=== PATIENT | male | born 1945 | race Caucasian/White ===

== ENCOUNTER → 2016-06-22 | Outpatient (CLI) | payer MEDICARE ==
[~2016-06-22] MED LIST: ASPI81TA4 PO; COQ-200C PO; FISH100049 PO; IRON325T PO; MULTTAB12 PO; OMEP20CA3 PO; OSTETAB3 PO; PRAV40TA2 PO; VITA-122 PO; tumeric curcumin PO
--- NOTE | 2016-06-24 10:43 | SLEEPCENT ---
DATE OF STUDY: 06/22/2016 ORDERING PHYSICIAN: Holden Taylor DO Nocturnal polysomnography was performed for the titration of pressure therapy in this patient with obstructive sleep apnea syndrome, apnea-hypopnea index of 10. For testing, the patient was fit with a ResMed Quattro full face mask of medium size. 4 cm of water pressure were applied to the circuit, and the lights were extinguished. 7 hours and 16 minutes of data were reviewed. There were only 238 minutes of sleep identified. Sleep latency was prolonged at 58 minutes. Rapid eye movement (REM) latency was prolonged at 285 minutes. Sleep architecture remained fragmented until late in the study. Overall efficiency was only 55% due to periods of awake. The patient's electrocardiogram (EKG) showed a sinus rhythm with ectopy. There was a first-degree AV block. Average heart rate was 55 beats per minute. Electroencephalogram (EEG) showed reasonably normal waveforms for awake and sleep. Persistence of respiratory events and poor sleep progression prompted an increase in continuous positive airway pressure (CPAP) pressure. Despite optimal mask fit and minimal air leak, the patient required a change to a bilevel device. Best sleep was seen on a bilevel pressure of 13/8 with which pressure the patient did sleep through REM with minimal respiratory disturbance and no oxygen desaturation. Limb activity was prominent throughout the test. Limb movement arousal index was 13.3, increased somewhat from the diagnostic night. There were at least three trains of 30 events identified. IMPRESSION: 1. Obstructive sleep apnea syndrome (G47.33). 2. Periodic limb movement disorder (G47.61). Limb movement arousal index 13.3. RECOMMENDATION: Nightly use of bilevel pressure therapy at an inspiratory pressure of 13 over expiratory pressure of 8 should be sufficient to address the patient's respiratory disruption. Given the difficulty with accommodation to the mask in the laboratory, significant support may be necessary. Pending clinical response, interventions to reduce the frequency of arousal from limb activity may also be helpful.
== END ==
LOC: M SLEEP 19:45
PROVIDERS: ATTEND Internal Medicine Pulmonary Disease
DX: G47.33 Obstructive sleep apnea (adult) (pediatric) (principal); G47.61 Periodic limb movement disorder

== ENCOUNTER → 2016-07-24 | Outpatient (REF) | payer MEDICARE ==
[2016-07-24 11:55] LABS: ANION GAP 7 MEQ/L (8-16); BLOOD UREA NITROGEN 25 MG/DL (7-18); CALCIUM LEVEL 8.7 MG/DL (8.8-10.2); CARBON DIOXIDE LEVEL 28 MEQ/L (21-32); CHLORIDE LEVEL 108 MEQ/L (98-107); CREATININE FOR GFR 0.88 MG/DL (0.70-1.30); GLOMERULAR FILTRATION RATE > 60.0 (>49); GLUCOSE, FASTING 92 MG/DL (80-110); POTASSIUM SERUM 4.2 MEQ/L (3.5-5.1); SODIUM LEVEL 143 MEQ/L (136-145)
== END ==
LOC: M SFHCPLAZ 07:49
PROVIDERS: ATTEND Family Medicine
DX: R00.8 Other abnormalities of heart beat (principal); Z12.5 Encounter for screening for malignant neoplasm of prostate
CPT/HCPCS: 36415; 80048; G0103

== ENCOUNTER → 2017-01-22 | Outpatient (REF) | payer MEDICARE ==
[~2017-01-22] MED LIST changes: +ASPI81TA18 PO; -ASPI81TA4 PO
[2017-01-22 12:20] LABS: MEAN CORPUSCULAR HEMOGLOBIN 30.5 pg (27.0-33.0); MEAN CORPUSCULAR HGB CONC 33.2 g/dl (32.0-36.5); MEAN CORPUSCULAR VOLUME 91.7 fl (80.0-96.0); WHITE BLOOD COUNT 5.8 K/mm3 (4.0-10.0)
[2017-01-22 12:40] LABS: ALBUMIN 3.3 GM/DL (3.2-5.2); ALBUMIN/GLOBULIN RATIO 1.22 (1.00-1.93); ALKALINE PHOSPHATASE 42 U/L (45-117); ALT/SGPT 17 U/L (12-78); ANION GAP 8 MEQ/L (8-16); AST/SGOT 10 U/L (15-37); BILIRUBIN,TOTAL 0.6 MG/DL (0.2-1.0); BLOOD UREA NITROGEN 21 MG/DL (7-18); CALCIUM LEVEL 8.2 MG/DL (8.8-10.2); CARBON DIOXIDE LEVEL 26 MEQ/L (21-32); CHLORIDE LEVEL 111 MEQ/L (98-107); CHOLESTEROL LEVEL 133 MG/DL (<200); CREATININE FOR GFR 0.82 MG/DL (0.70-1.30); GLOMERULAR FILTRATION RATE > 60.0 (>49); GLUCOSE, FASTING 86 MG/DL (80-110); POTASSIUM SERUM 3.9 MEQ/L (3.5-5.1); SODIUM LEVEL 145 MEQ/L (136-145); TRIGLYCERIDES LEVEL 60 MG/DL (<150)
== END ==
LOC: M SFHCPLAZ 07:51
PROVIDERS: ATTEND Family Medicine
DX: G47.33 Obstructive sleep apnea (adult) (pediatric) (principal); E78.2 Mixed hyperlipidemia

== ENCOUNTER 2017-10-14 10:52 | Day surgery (SDC) | payer MEDICARE ==
[2017-10-14] MEDS ORDERED: NS 1,000 ML IV (11:45)
[2017-10-14] MEDS ORDERED: LIDOCAINE 2% INJ 100 MG/5 ML SDV (FOR ANES.) As Ordered (11:58)
[2017-10-14] MEDS ORDERED: PROPOFOL 200 MG/20 ML VIAL As Ordered ×3 (11:58)
== END 2017-10-14 12:56 | disposition home or self-care (01) ==
LOC: M OPP 10:52
DX: Z12.11 Encounter for screening for malignant neoplasm of colon (principal); Z86.010 Personal history of colon polyps; K64.1 Second degree hemorrhoids; K57.30 Diverticulosis of large intestine without perforation or abscess without bleeding; R12 Heartburn; K22.8 Other specified diseases of esophagus; K22.70 Barrett's esophagus without dysplasia; K44.9 Diaphragmatic hernia without obstruction or gangrene; R00.8 Other abnormalities of heart beat; I10 Essential (primary) hypertension; E78.5 Hyperlipidemia, unspecified; K21.9 Gastro-esophageal reflux disease without esophagitis; R06.02 Shortness of breath; M19.90 Unspecified osteoarthritis, unspecified site; G47.30 Sleep apnea, unspecified; R06.83 Snoring; Z79.82 Long term (current) use of aspirin; Z79.899 Other long term (current) drug therapy
CPT/HCPCS: G0105

== ENCOUNTER → 2017-11-26 | Outpatient (CLI) | payer MEDICARE ==
[2017-11-26 11:57] LABS: HEMOGLOBIN 13.8 g/dl (13.5-17.5); MEAN CORPUSCULAR HEMOGLOBIN 27.5 pg (27.0-33.0); MEAN CORPUSCULAR HGB CONC 32.1 g/dl (32.0-36.5); MEAN CORPUSCULAR VOLUME 85.7 fl (80.0-96.0); PLATELET COUNT, AUTOMATED 225 10^3/uL (150-450); RED BLOOD COUNT 5.02 10^6/uL (4.30-6.10); RED CELL DISTRIBUTION WIDTH 15.1 % (11.5-14.5); WHITE BLOOD COUNT 5.1 10^3/uL (4.0-10.0)
[2017-11-26 12:08] LABS: INR 0.97
[2017-11-26 12:36] LABS: ALBUMIN 3.7 GM/DL (3.2-5.2); ALBUMIN/GLOBULIN RATIO 1.23 (1.00-1.93); ALKALINE PHOSPHATASE 50 U/L (45-117); ALT/SGPT 21 U/L (12-78); ANION GAP 6 MEQ/L (8-16); AST/SGOT 14 U/L (7-37); BILIRUBIN,TOTAL 0.6 MG/DL (0.2-1.0); BLOOD UREA NITROGEN 26 MG/DL (7-18); CALCIUM LEVEL 8.6 MG/DL (8.8-10.2); CARBON DIOXIDE LEVEL 28 MEQ/L (21-32); CHLORIDE LEVEL 110 MEQ/L (98-107); CREATININE FOR GFR 0.84 MG/DL (0.70-1.30); GLOMERULAR FILTRATION RATE > 60.0 (>42); GLUCOSE, FASTING 90 MG/DL (70-100); POTASSIUM SERUM 4.5 MEQ/L (3.5-5.1); SODIUM LEVEL 144 MEQ/L (136-145); TOTAL PROTEIN 6.7 GM/DL (6.4-8.2)
[2017-11-26 13:31] LABS: ERYTHROCYTE SEDIMENTATION RATE 4 mm/hr (0-20)
== END ==
LOC: M ADMPAT 10:21
DX: Z01.818 Encounter for other preprocedural examination (principal); I11.9 Hypertensive heart disease without heart failure
CPT/HCPCS: 71046

== ENCOUNTER 2017-12-24 05:44 | Inpatient (IN) | payer MEDICARE ==
[2017-12-24] MEDS ORDERED: LR 1,000 ML IV (06:00)
[2017-12-24] MEDS: ACETAMINOPHEN 500 MG TAB PO (06:00)
[2017-12-24] MEDS: LR 1,000 ML IV ×4 (06:00→21:50)
[2017-12-24] MEDS ORDERED: LIDOCAINE 1% MDV 20ML VIAL SQ (06:00)
[2017-12-24] MEDS ORDERED: fentaNYL 100 MCG/2 ML INJECTION (J3010) As Ordered ×2 (06:45→07:48)
[2017-12-24] MEDS ORDERED: MIDAZOLAM INJ 2 MG/2 ML VIAL (J2250) As Ordered ×2 (06:45→07:48)
[2017-12-24] MEDS: fentaNYL 100 MCG/2 ML INJECTION (J3010) IV (07:07)
[2017-12-24] MEDS: MIDAZOLAM INJ 2 MG/2 ML VIAL (J2250) IV (07:07)
[2017-12-24] MEDS ORDERED: BUPIVACAINE/DEXTROSE 0.75% 2 ML AMP As Ordered (07:48)
[2017-12-24] MEDS ORDERED: PROPOFOL 200 MG/20 ML VIAL As Ordered (07:48)
[2017-12-24] MEDS ORDERED: LIDOCAINE 2% INJ 100 MG/5 ML SDV (FOR ANES.) As Ordered (07:48)
[2017-12-24] MEDS ORDERED: ePHEDrine SULFATE 25 MG/5 ML(5MG/ML) SYRINGE As Ordered ×3 (07:55→09:08)
[2017-12-24] MEDS: EPINEPHrine INJ 1 MG/ML 1ML AMP As Ordered (08:27)
[2017-12-24] MEDS: BUPIVACAINE LIPOSOME/PF 1.3% 20 ML VIAL (13.3MG/ML)(EXPAREL) As Ordered (08:28)
[2017-12-24] MEDS: ceFAZolin 1GM INJ (J0690 PER 500MG) As Ordered (08:28)
[2017-12-24] MEDS: TRANEXAMIC ACID 100 MG/ML 10ML VIAL As Ordered (08:30)
[2017-12-24] MEDS: BUPIVACAINE HCL 0.25% 10 ML VIAL As Ordered (08:30)
[2017-12-24] MEDS ORDERED: MORPHINE 1MG/ML IN 0.9% NACL 100ML IV BAG As Ordered (09:04)
[2017-12-24] MEDS ORDERED: EPIDURAL/PCA KEYS XX (10:00)
[2017-12-24] MEDS ORDERED: FLEET ENEMA PR (10:00)
[2017-12-24] MEDS ORDERED: ACETAMINOPHEN TAB 650MG DOSE (2X325MG) PO (10:00)
[2017-12-24] MEDS ORDERED: MORPHINE 1MG/ML IN 0.9% NACL 100ML IV BAG IV (10:00)
[2017-12-24] MEDS ORDERED: diphenhydrAMINE INJ 50MG/ML VIAL (J1200) IV (10:00)
[2017-12-24] MEDS ORDERED: NALBUPHINE HCL 10 MG/ML AMP (J2300) IV (10:00)
[2017-12-24] MEDS ORDERED: NALOXONE INJ 0.4 MG/1 ML VIAL (J2310) IV (10:00)
[2017-12-24] MEDS ORDERED: fentaNYL 100 MCG/2 ML INJECTION (J3010) IV (10:15)
[2017-12-24] MEDS ORDERED: ONDANSETRON 4MG/2ML VIAL (J2405) IV (10:15)
[2017-12-24] MEDS ORDERED: dexameTHASONE 10 MG/1 ML VIAL PRES.FREE (J1100) (11:07)
[2017-12-24] MEDS ORDERED: ROPIvacaine 0.5% 30 ML INJECTION (J2795 PER 1MG) (11:07)
[2017-12-24] MEDS ORDERED: EPINEPHrine INJ 1 MG/ML 1ML AMP (11:07)
[2017-12-24] MEDS: ONDANSETRON 4MG/2ML VIAL (J2405) IV ×2 (15:26→21:07)
[2017-12-24] MEDS: OMEPRAZOLE 20 MG CAP PO (21:08)
[2017-12-24] MEDS: PRAVASTATIN 20 MG TAB PO (21:08)
[2017-12-24] MEDS: CARVedilol 6.25 MG TAB PO (21:08)
[2017-12-25 06:44] LABS: HEMATOCRIT 38.6 % (42.0-52.0); HEMOGLOBIN 12.6 g/dl (13.5-17.5); MEAN CORPUSCULAR HEMOGLOBIN 27.8 pg (27.0-33.0); MEAN CORPUSCULAR HGB CONC 32.6 g/dl (32.0-36.5); PLATELET COUNT, AUTOMATED 218 10^3/uL (150-450); RED BLOOD COUNT 4.54 10^6/uL (4.30-6.10); RED CELL DISTRIBUTION WIDTH 15.4 % (11.5-14.5); WHITE BLOOD COUNT 12.1 10^3/uL (4.0-10.0)
[2017-12-25] MEDS ORDERED: ONDANSETRON 4 MG TAB (S0181) PO (06:45)
[2017-12-25] MEDS ORDERED: PERCOCET 5MG/325MG TAB PO (06:45)
[2017-12-25 06:55] LABS: INR 1.06
[2017-12-25 06:58] LABS: ANION GAP 8 MEQ/L (8-16); BLOOD UREA NITROGEN 18 MG/DL (7-18); CALCIUM LEVEL 8.2 MG/DL (8.8-10.2); CARBON DIOXIDE LEVEL 28 MEQ/L (21-32); CHLORIDE LEVEL 104 MEQ/L (98-107); CREATININE FOR GFR 1.02 MG/DL (0.70-1.30); GLOMERULAR FILTRATION RATE > 60.0 (>42); GLUCOSE, FASTING 112 MG/DL (70-100); POTASSIUM SERUM 3.9 MEQ/L (3.5-5.1); SODIUM LEVEL 140 MEQ/L (136-145)
[2017-12-25] MEDS: MOM 30ML SUSPENSION UDC PO (08:53)
[2017-12-25] MEDS: MIRALAX *UNIT DOSE* 17GM PACKET PO (08:53)
[2017-12-25] MEDS: OMEPRAZOLE 20 MG CAP PO (08:53)
[2017-12-25] MEDS: CARVedilol 6.25 MG TAB PO (08:54)
[2017-12-25] MEDS: SENOKOT S TAB PO (08:54)
[2017-12-25] MEDS: LOSARTAN 25 MG TAB PO (08:54)
[2017-12-25] MEDS: PERCOCET 5MG/325MG TAB PO (08:55)
[2017-12-25] MEDS ORDERED: RIVAROXABAN 10 MG TAB (XARELTO) PO (18:00)
== END 2017-12-25 11:50 | disposition home health service (06) | DRG 470 ==
LOC: M OR 05:44 → M MS5PR 13:50
PROC: 0SRC0J9 Replacement of Right Knee Joint with Synthetic Substitute, Cemented, Open Approach (ICD-10-PCS; principal; 2017-12-24 07:30)
DX: M17.11 Unilateral primary osteoarthritis, right knee (principal); I11.9 Hypertensive heart disease without heart failure; E78.00 Pure hypercholesterolemia, unspecified; G47.33 Obstructive sleep apnea (adult) (pediatric); R26.89 Other abnormalities of gait and mobility; E66.9 Obesity, unspecified; K21.9 Gastro-esophageal reflux disease without esophagitis; K22.70 Barrett's esophagus without dysplasia; Z79.82 Long term (current) use of aspirin; Z79.899 Other long term (current) drug therapy; Z88.8 Allergy status to other drugs, medicaments and biological substances; Z68.31 Body mass index [BMI] 31.0-31.9, adult

== ENCOUNTER → 2018-02-17 | Outpatient (REF) | payer MEDICARE ==
[2018-02-17 10:17] LABS: HEMATOCRIT 42.5 % (42.0-52.0); HEMOGLOBIN 13.8 g/dl (13.5-17.5); MEAN CORPUSCULAR HEMOGLOBIN 29.3 pg (27.0-33.0); MEAN CORPUSCULAR HGB CONC 32.5 g/dl (32.0-36.5); MEAN CORPUSCULAR VOLUME 90.2 fl (80.0-96.0); PLATELET COUNT, AUTOMATED 239 10^3/uL (150-450); RED BLOOD COUNT 4.71 10^6/uL (4.30-6.10); RED CELL DISTRIBUTION WIDTH 14.2 % (11.5-14.5); WHITE BLOOD COUNT 5.2 10^3/uL (4.0-10.0)
[2018-02-17 10:55] LABS: ALBUMIN 3.6 GM/DL (3.2-5.2); ALKALINE PHOSPHATASE 61 U/L (45-117); ALT/SGPT 13 U/L (12-78); ANION GAP 8 MEQ/L (8-16); AST/SGOT 11 U/L (7-37); BILIRUBIN,TOTAL 0.6 MG/DL (0.2-1.0); BLOOD UREA NITROGEN 23 MG/DL (7-18); CALCIUM LEVEL 8.9 MG/DL (8.8-10.2); CARBON DIOXIDE LEVEL 27 MEQ/L (21-32); CHLORIDE LEVEL 108 MEQ/L (98-107); CHOLESTEROL LEVEL 142 MG/DL (<200); CHOLESTEROL RISK RATIO 2.679 (<5); CREATININE FOR GFR 0.86 MG/DL (0.70-1.30); GLOMERULAR FILTRATION RATE > 60.0 (>42); GLUCOSE, FASTING 85 MG/DL (70-100); HDL CHOLESTEROL 53 MG/DL (>40); LDL CHOLESTEROL 75 MG/DL (<100); NON-HDL-C 89 MG/DL; POTASSIUM SERUM 4.3 MEQ/L (3.5-5.1); PSA SCREENING 1.68 NG/ML (< 4.0); SODIUM LEVEL 143 MEQ/L (136-145); TOTAL PROTEIN 6.6 GM/DL (6.4-8.2); TRIGLYCERIDES LEVEL 71 MG/DL (<150)
== END ==
LOC: M SFHCPLAZ 08:19
DX: K22.70 Barrett's esophagus without dysplasia (principal); G47.33 Obstructive sleep apnea (adult) (pediatric); E78.2 Mixed hyperlipidemia; Z12.5 Encounter for screening for malignant neoplasm of prostate
CPT/HCPCS: 80053

== ENCOUNTER → 2019-02-18 | Outpatient (REF) | payer MEDICARE ==
[~2019-02-18] MED LIST changes: -ASPI81TA18 PO; +ASPI81TA52 PO; +CARV6.25 PO; +LOSA25TA14 PO; +MINO100C63 PO; +MOVE1TAB PO; -OMEP20CA3 PO; +OMEP20CA4 PO; +PERC5TAB12 PO; +SPIR-10 PO; +TOBRSUS8 OU; +TURM500C PO; +XARE10TA PO
[2019-02-18 12:53] LABS: HEMATOCRIT 44.5 % (42.0-52.0); HEMOGLOBIN 14.3 g/dl (13.5-17.5); MEAN CORPUSCULAR HEMOGLOBIN 29.4 pg (27.0-33.0); MEAN CORPUSCULAR HGB CONC 32.1 g/dl (32.0-36.5); MEAN CORPUSCULAR VOLUME 91.6 fl (80.0-96.0); PLATELET COUNT, AUTOMATED 225 10^3/uL (150-450); RED BLOOD COUNT 4.86 10^6/uL (4.30-6.10); WHITE BLOOD COUNT 5.4 10^3/uL (4.0-10.0)
[2019-02-18 13:29] LABS: ALBUMIN 3.7 GM/DL (3.2-5.2); ALT/SGPT 16 U/L (12-78); BILIRUBIN,TOTAL 0.6 MG/DL (0.2-1.0); BLOOD UREA NITROGEN 20 MG/DL (7-18); CALCIUM LEVEL 8.8 MG/DL (8.8-10.2); CARBON DIOXIDE LEVEL 28 MEQ/L (21-32); CHLORIDE LEVEL 107 MEQ/L (98-107); CHOLESTEROL LEVEL 153 MG/DL (<200); CHOLESTEROL RISK RATIO 2.684 (<5); CREATININE FOR GFR 0.85 MG/DL (0.70-1.30); GLOMERULAR FILTRATION RATE > 60.0 (>42); GLUCOSE, FASTING 80 MG/DL (70-100); HDL CHOLESTEROL 57 MG/DL (>40); LDL CHOLESTEROL 80 MG/DL (<100); NON-HDL-C 96 MG/DL; POTASSIUM SERUM 3.9 MEQ/L (3.5-5.1); SODIUM LEVEL 143 MEQ/L (136-145); TOTAL PROTEIN 6.3 GM/DL (6.4-8.2); TRIGLYCERIDES LEVEL 79 MG/DL (<150)
== END ==
LOC: M SFHCPLAZ 09:00
PROVIDERS: ATTEND Family Medicine
DX: Z12.5 Encounter for screening for malignant neoplasm of prostate (principal); K22.70 Barrett's esophagus without dysplasia; E78.2 Mixed hyperlipidemia
CPT/HCPCS: 36415; 80053; 80061; 85027; G0103

== ENCOUNTER → 2019-09-22 | Outpatient (REF) | payer MEDICARE ==
[~2019-09-22] MED LIST changes: +OMEP1CAP73 PO; -OMEP20CA4 PO
[2019-09-22 10:50] LABS: HEMATOCRIT 47.6 % (42.0-52.0); HEMOGLOBIN 15.4 g/dl (13.5-17.5); MEAN CORPUSCULAR HEMOGLOBIN 29.8 pg (27.0-33.0); MEAN CORPUSCULAR HGB CONC 32.4 g/dl (32.0-36.5); MEAN CORPUSCULAR VOLUME 92.2 fl (80.0-96.0); PLATELET COUNT, AUTOMATED 231 10^3/uL (150-450); RED BLOOD COUNT 5.16 10^6/uL (4.30-6.10); WHITE BLOOD COUNT 5.5 10^3/uL (4.0-10.0)
[2019-09-22 11:10] LABS: ALBUMIN 3.6 GM/DL (3.2-5.2); ALT/SGPT 23 U/L (12-78); BILIRUBIN,TOTAL 0.7 MG/DL (0.2-1.0); BLOOD UREA NITROGEN 23 MG/DL (7-18); CALCIUM LEVEL 8.9 MG/DL (8.8-10.2); CARBON DIOXIDE LEVEL 29 MEQ/L (21-32); CHLORIDE LEVEL 107 MEQ/L (98-107); CHOLESTEROL LEVEL 174 MG/DL (<200); CREATININE FOR GFR 0.94 MG/DL (0.70-1.30); GLOMERULAR FILTRATION RATE > 60.0 (>42); GLUCOSE, FASTING 99 MG/DL (70-100); HDL CHOLESTEROL 60 MG/DL (>40); LDL CHOLESTEROL 94 MG/DL (<100); NON-HDL-C 114 MG/DL; POTASSIUM SERUM 4.2 MEQ/L (3.5-5.1); SODIUM LEVEL 141 MEQ/L (136-145); TOTAL PROTEIN 6.8 GM/DL (6.4-8.2); TRIGLYCERIDES LEVEL 102 MG/DL (<150)
[2019-09-22 11:16] LABS: HEMOGLOBIN A1c 5.5 %
== END ==
LOC: M PLALAB 08:04
PROVIDERS: ATTEND Family Medicine
DX: K22.70 Barrett's esophagus without dysplasia (principal); I11.9 Hypertensive heart disease without heart failure; E74.9 Disorder of carbohydrate metabolism, unspecified; E78.2 Mixed hyperlipidemia; Z12.5 Encounter for screening for malignant neoplasm of prostate; Z79.899 Other long term (current) drug therapy
CPT/HCPCS: 36415; 80053; 80061; 83036; 85027; G0103

== ENCOUNTER → 2020-04-04 | Outpatient (REF) | payer MEDICARE ==
[2020-04-04 17:40] LABS: HEMATOCRIT 45.7 % (42.0-52.0); MEAN CORPUSCULAR HEMOGLOBIN 31.6 pg (27.0-33.0); MEAN CORPUSCULAR HGB CONC 32.8 g/dl (32.0-36.5); MEAN CORPUSCULAR VOLUME 96.4 fl (80.0-96.0); PLATELET COUNT, AUTOMATED 249 10^3/uL (150-450); RED BLOOD COUNT 4.74 10^6/uL (4.30-6.10); WHITE BLOOD COUNT 7.3 10^3/uL (4.0-10.0)
[2020-04-04 20:00] LABS: ALBUMIN 3.5 GM/DL (3.2-5.2); ALT/SGPT 19 U/L (12-78); BILIRUBIN,TOTAL 0.4 MG/DL (0.2-1.0); BLOOD UREA NITROGEN 20 MG/DL (7-18); CALCIUM LEVEL 8.8 MG/DL (8.8-10.2); CARBON DIOXIDE LEVEL 28 MEQ/L (21-32); CHLORIDE LEVEL 109 MEQ/L (98-107); CREATININE FOR GFR 0.94 MG/DL (0.70-1.30); FREE T4 0.97 NG/DL (0.76-1.46); GLOMERULAR FILTRATION RATE > 60.0 (>42); GLUCOSE, FASTING 65 MG/DL (70-100); POTASSIUM SERUM 4.3 MEQ/L (3.5-5.1); SODIUM LEVEL 144 MEQ/L (136-145); TOTAL 25(OH) VITAMIN D 30.7 NG/ML (30.0-100.0); TOTAL PROTEIN 6.3 GM/DL (6.4-8.2)
[2020-04-04 20:01] LABS: FOLATE 22.3 NG/ML (>5.4)
[2020-04-04 21:20] LABS: HEMOGLOBIN A1c 5.1 %
== END ==
LOC: M SFHCADAM 14:03
PROVIDERS: ATTEND Family Medicine
DX: G47.10 Hypersomnia, unspecified (principal); R53.83 Other fatigue; E74.9 Disorder of carbohydrate metabolism, unspecified; Z79.899 Other long term (current) drug therapy

== ENCOUNTER → 2020-05-04 | Outpatient (CLI) | payer MEDICARE ==
--- NOTE | 2020-05-08 12:40 | SLEEPCENT ---
DATE OF SERVICE: 05/04/2020 ORDERED BY: Rich Cobb Nocturnal polysomnography was performed for the retitration of pressure therapy in this patient with obstructive sleep apnea syndrome and persistent symptoms despite use of bilevel pressure.. For testing, A ResMed Davies nasal pillows device was used of medium size. An initial bilevel of 13/8 was applied to the circuit, and the lights were extinguished. There was 8 hours and 4 minutes of data reviewed. There was 367 minutes of sleep identified. Sleep latency was prolonged at 61 minutes. REM latency was normal at 87 minutes. Sleep architecture showed some minor fragmentation. There were three REM cycles noted. Overall sleep efficiency was 76.9%. The electrocardiogram showed a sinus rhythm with an average heart rate of 56 beats per minute. Frequent premature ventricular contractions (PVCs) were prescribed. EEG showed reasonably normal waveforms for wake and sleep. Respiratory events were found best palliated with a bilevel pressure, inspiratory 16 over expiratory 11. Significant limb activity was noted over the course of the study, but limb movement arousal index was only 3.9. IMPRESSION: Obstructive sleep apnea syndrome (G47.33). RECOMMENDATION: Nightly use of bilevel pressure therapy, inspiratory 16 over expiratory 11.
== END ==
LOC: M SLEEP 20:00
PROVIDERS: ATTEND Physician Assistant
DX: G47.33 Obstructive sleep apnea (adult) (pediatric) (principal)

== ENCOUNTER → 2021-03-21 | Outpatient (CLI) | payer MEDICARE ==
[2021-03-21 10:26] LABS: HEMATOCRIT 40.3 % (42.0-52.0); HEMOGLOBIN 12.9 g/dl (13.5-17.5); MEAN CORPUSCULAR HEMOGLOBIN 28.6 pg (27.0-33.0); MEAN CORPUSCULAR VOLUME 89.4 fl (80.0-96.0); PLATELET COUNT, AUTOMATED 256 10^3/uL (150-450); RED BLOOD COUNT 4.51 10^6/uL (4.30-6.10); WHITE BLOOD COUNT 5.1 10^3/uL (4.0-10.0)
[2021-03-21 10:58] LABS: ALBUMIN 3.4 GM/DL (3.2-5.2); ALT/SGPT 18 U/L (12-78); BILIRUBIN,TOTAL 0.7 MG/DL (0.2-1.0); BLOOD UREA NITROGEN 18 MG/DL (7-18); CALCIUM LEVEL 8.7 MG/DL (8.8-10.2); CARBON DIOXIDE LEVEL 28 MEQ/L (21-32); CHLORIDE LEVEL 111 MEQ/L (98-107); CHOLESTEROL LEVEL 150 MG/DL (<200); CHOLESTEROL RISK RATIO 2.727 (<5); CREATININE FOR GFR 0.86 MG/DL (0.70-1.30); GLOMERULAR FILTRATION RATE > 60.0 (>42); GLUCOSE, FASTING 97 MG/DL (70-100); HDL CHOLESTEROL 55 MG/DL (>40); LDL CHOLESTEROL 75 MG/DL (<100); NON-HDL-C 95 MG/DL; SODIUM LEVEL 143 MEQ/L (136-145); TOTAL PROTEIN 6.5 GM/DL (6.4-8.2); TRIGLYCERIDES LEVEL 100 MG/DL (<150)
[2021-03-21 11:21] LABS: HEMOGLOBIN A1c 5.1 %
== END ==
LOC: M PLALAB 08:00
PROVIDERS: ATTEND Family Medicine
DX: I11.9 Hypertensive heart disease without heart failure (principal); Z12.5 Encounter for screening for malignant neoplasm of prostate
CPT/HCPCS: 36415; 80053; 80061; 83036; 85027; G0103

== ENCOUNTER → 2021-04-09 | Outpatient (CLI) | payer MEDICARE ==
--- NOTE | 2021-04-09 15:06 | REP ---
INDICATION: BARBA. COMPARISON: 11/26/2017 TECHNIQUE: PA and lateral FINDINGS: The cardiomediastinal silhouette lung govea are unchanged. No acute patchy parenchymal opacities or pleural effusion. The heart is not enlarged. There is thoracic aortic tortuosity status quo. There is no change in the osseous structures. IMPRESSION: Stable chest <Electronically signed by Ata Hampton > 04/09/21 [id number]
== END ==
LOC: M ADAMS 12:16
PROVIDERS: ATTEND Family Medicine
DX: R06.00 Dyspnea, unspecified (principal); R30.0 Dysuria

== ENCOUNTER → 2021-04-09 | Outpatient (REF) | payer MEDICARE ==
[2021-04-09 17:48] LABS: APPEARANCE, URINE HAZY (CLEAR); BACTERIA, URINE AUTO NEGATIVE (NEGATIVE); BILIRUBIN, URINE AUTO NEGATIVE (NEGATIVE); BLOOD, URINE BLOOD NEGATIVE (NEGATIVE); COLOR, URINE YELLOW (YELLOW); GLUCOSE, URINE (UA) AUTO NEGATIVE (NEGATIVE); KETONE, URINE AUTO NEGATIVE (NEGATIVE); LEUKOCYTE ESTERASE, URINE AUTO 1+ (NEGATIVE); MUCUS, URINE SMALL (NEGATIVE); NITRITE, URINE AUTO NEGATIVE (NEGATIVE); PROTEIN, URINE AUTO NEGATIVE (NEGATIVE); RBC, URINE AUTO 0 /HPF (0-3); SPECIFIC GRAVITY URINE AUTO 1.023 (1.002-1.035); SQUAMOUS EPITHELIAL CELL UR AU 1 /HPF (0-6); UROBILINOGEN, URINE AUTO 0.2 mg/dL (0.0-2.0); WBC, URINE AUTO 16 /HPF (0-3)
== END ==
LOC: M SFHCADAM 12:02
PROVIDERS: ATTEND Family Medicine
DX: R30.0 Dysuria (principal)

== ENCOUNTER → 2021-05-13 | Outpatient (CLI) | payer MEDICARE ==
[~2021-05-13] MED LIST changes: +LOSA25TA13 PO; -LOSA25TA14 PO
[2021-05-13 18:40] LABS: HEMATOCRIT 44.1 % (42.0-52.0); HEMOGLOBIN 13.8 g/dl (13.5-17.5); MEAN CORPUSCULAR HEMOGLOBIN 27.2 pg (27.0-33.0); MEAN CORPUSCULAR HGB CONC 31.3 g/dl (32.0-36.5); PLATELET COUNT, AUTOMATED 298 10^3/uL (150-450); RED BLOOD COUNT 5.07 10^6/uL (4.30-6.10); WHITE BLOOD COUNT 7.7 10^3/uL (4.0-10.0)
[2021-05-13 21:35] LABS: ALBUMIN 3.7 GM/DL (3.2-5.2); ALT/SGPT 22 U/L (12-78); BILIRUBIN,TOTAL 0.5 MG/DL (0.2-1.0); BLOOD UREA NITROGEN 22 MG/DL (7-18); CALCIUM LEVEL 9.4 MG/DL (8.8-10.2); CARBON DIOXIDE LEVEL 26 MEQ/L (21-32); CHLORIDE LEVEL 111 MEQ/L (98-107); CREATININE FOR GFR 1.08 MG/DL (0.70-1.30); GLOMERULAR FILTRATION RATE > 60.0 (>42); GLUCOSE, FASTING 92 MG/DL (70-100); NT-PRO BNP 21 PG/ML (<125); POTASSIUM SERUM 3.7 MEQ/L (3.5-5.1); SODIUM LEVEL 144 MEQ/L (136-145)
== END ==
LOC: M PLALAB 14:04
PROVIDERS: ATTEND Internal Medicine Cardiovascular Disease
DX: R06.02 Shortness of breath (principal)

== ENCOUNTER → 2021-05-13 | Outpatient (CLI) | payer MEDICARE ==
[2021-05-13 18:41] LABS: HEMOGLOBIN 13.6 g/dl (13.5-17.5); MEAN CORPUSCULAR HEMOGLOBIN 27.6 pg (27.0-33.0); MEAN CORPUSCULAR HGB CONC 31.6 g/dl (32.0-36.5); MEAN CORPUSCULAR VOLUME 87.2 fl (80.0-96.0); PLATELET COUNT, AUTOMATED 305 10^3/uL (150-450); RED BLOOD COUNT 4.93 10^6/uL (4.30-6.10); WHITE BLOOD COUNT 7.8 10^3/uL (4.0-10.0)
[2021-05-13 21:35] LABS: PERCENT SATURATION 11.4 % (19.7-50.0)
== END ==
LOC: M PLALAB 14:01
PROVIDERS: ATTEND Family Medicine
DX: D64.9 Anemia, unspecified (principal)

== ENCOUNTER → 2021-05-21 | Outpatient (REF) | payer MEDICARE ==
[~2021-05-21] MED LIST changes: -LOSA25TA13 PO; +LOSA25TA14 PO
[2021-05-21 12:42] LABS: AMORPHOUS SEDIMENT SMALL (NEGATIVE); APPEARANCE, URINE TURBID (CLEAR); BACTERIA, URINE AUTO 1+ (NEGATIVE); BILIRUBIN, URINE AUTO NEGATIVE (NEGATIVE); BLOOD, URINE BLOOD NEGATIVE (NEGATIVE); COLOR, URINE AMBER (YELLOW); GLUCOSE, URINE (UA) AUTO NEGATIVE (NEGATIVE); KETONE, URINE AUTO NEGATIVE (NEGATIVE); LEUKOCYTE ESTERASE, URINE AUTO 2+ (NEGATIVE); MUCUS, URINE MODERATE (NEGATIVE); NITRITE, URINE AUTO NEGATIVE (NEGATIVE); PROTEIN, URINE AUTO NEGATIVE (NEGATIVE); RBC, URINE AUTO 1 /HPF (0-3); SPECIFIC GRAVITY URINE AUTO 1.023 (1.002-1.035); SQUAMOUS EPITHELIAL CELL UR AU 1 /HPF (0-6); UROBILINOGEN, URINE AUTO 0.2 mg/dL (0.0-2.0); WBC, URINE AUTO 32 /HPF (0-3)
== END ==
LOC: M SFHCADAM 08:42
PROVIDERS: ATTEND Family Medicine
DX: R30.0 Dysuria (principal)

== ENCOUNTER → 2021-05-23 | Outpatient (CLI) | payer MEDICARE ==
[~2021-05-23] MED LIST changes: +ISOVUE-370 76% 100ML VIAL As Ordered ONE; +LOSA25TA13 PO; -LOSA25TA14 PO
== END ==
LOC: M RAD 08:07
PROVIDERS: ATTEND Physician Assistant
DX: R91.8 Other nonspecific abnormal finding of lung field (principal); R06.02 Shortness of breath; R07.9 Chest pain, unspecified
CPT/HCPCS: 71275; Q9967

== ENCOUNTER → 2021-06-04 | Outpatient (CLI) | payer MEDICARE ==
[~2021-06-04] MED LIST changes: -ISOVUE-370 76% 100ML VIAL As Ordered ONE; -LOSA25TA13 PO; +LOSA25TA14 PO
--- NOTE | 2021-06-04 11:53 | REP ---
INDICATION: LEFT FLANK PAIN. COMPARISON: 05/24/2008. TECHNIQUE: Real-time sonographic evaluation of the kidneys is performed. Duplex Doppler interrogation of renal arteries performed. FINDINGS: Renal cortical echogenicity pattern is normal bilaterally and contours are smooth. There is no hydronephrosis bilaterally. A parapelvic cyst of the right kidney has increased in size compared to the prior study, measuring 3.5 x 2.7 x 3.1 cm. Two parapelvic cysts in the left kidney have also increased in size measuring 2.9 x 1.1 x 1.6 cm and 2.5 x 1.7 x 1.5 cm. The right kidney measures 13.5 x 6.5 x 6.1 cm. Left renal dimensions are 13.6 x 4.7 x 6.2 cm. The urinary bladder is unremarkable. Ureteral jets are visualized in the urinary bladder with Doppler color evaluation. The prostate impresses upon the base of the bladder. The prostate measures 4.6 x 3.7 x 4.9 cm, volume approximately 44 cc. Duplex Doppler evaluation of renal arteries performed. The peak systolic velocity of the abdominal aorta at the level of the renal artery is 90.0 centimeters/second. The peak systolic velocity of the proximal main right renal artery is 82.9 centimeter/second, renal to aortic ratio 0.9. Resistive indices are measured in the upper, middle and lower thirds of the right kidney and range between 0.60 and 0.62. Acceleration times range between 0.022 and 0.025. Peak systolic velocity of main left renal artery 91.7 centimeter/second, renal to aortic ratio 1.0. Resistive indices left kidney range between 0.62 and 0.65. Acceleration times range between 0.022 and 0.042. IMPRESSION: Bilateral parapelvic cysts. No compelling duplex Doppler sonographic evidence of hemodynamically significant stenosis of the main renal arteries bilaterally. <Electronically signed by Giovanni Judge > 06/04/21 [id number]
== END ==
LOC: M RAD 07:55
PROVIDERS: ATTEND Family Medicine
DX: R10.9 Unspecified abdominal pain (principal)

== ENCOUNTER → 2021-08-08 | Outpatient (CLI) | payer MEDICARE ==
[~2021-08-08] MED LIST changes: +LOSA25TA13 PO; -LOSA25TA14 PO
[2021-08-08 13:39] LABS: HEMATOCRIT 47.8 % (42.0-52.0); HEMOGLOBIN 15.6 g/dl (13.5-17.5); MEAN CORPUSCULAR HEMOGLOBIN 29.9 pg (27.0-33.0); MEAN CORPUSCULAR HGB CONC 32.6 g/dl (32.0-36.5); MEAN CORPUSCULAR VOLUME 91.7 fl (80.0-96.0); PLATELET COUNT, AUTOMATED 223 10^3/uL (150-450); RED BLOOD COUNT 5.21 10^6/uL (4.30-6.10); WHITE BLOOD COUNT 5.7 10^3/uL (4.0-10.0)
[2021-08-08 14:02] LABS: BLOOD UREA NITROGEN 23 MG/DL (7-18); CALCIUM LEVEL 9.3 MG/DL (8.8-10.2); CARBON DIOXIDE LEVEL 30 MEQ/L (21-32); CHLORIDE LEVEL 110 MEQ/L (98-107); CREATININE FOR GFR 0.93 MG/DL (0.70-1.30); FERRITIN 29 NG/ML (26-388); GLOMERULAR FILTRATION RATE > 60.0 (>42); GLUCOSE, FASTING 93 MG/DL (70-100); POTASSIUM SERUM 4.5 MEQ/L (3.5-5.1); SODIUM LEVEL 143 MEQ/L (136-145)
== END ==
LOC: M PLALAB 10:29
PROVIDERS: ATTEND Family Medicine
DX: E61.1 Iron deficiency (principal)

== ENCOUNTER → 2022-02-10 | Outpatient (CLI) | payer MEDICARE ==
[2022-02-10 10:39] LABS: HEMATOCRIT 41.1 % (42.0-52.0); MEAN CORPUSCULAR HEMOGLOBIN 29.3 pg (27.0-33.0); MEAN CORPUSCULAR HGB CONC 31.6 g/dl (32.0-36.5); MEAN CORPUSCULAR VOLUME 92.6 fl (80.0-96.0); PLATELET COUNT, AUTOMATED 250 10^3/uL (150-450); RED BLOOD COUNT 4.44 10^6/uL (4.30-6.10); WHITE BLOOD COUNT 5.5 10^3/uL (4.0-10.0)
[2022-02-10 11:54] LABS: ALBUMIN 3.5 GM/DL (3.2-5.2); ALT/SGPT 17 U/L (12-78); BILIRUBIN,TOTAL 0.6 MG/DL (0.2-1.0); BLOOD UREA NITROGEN 21 MG/DL (7-18); CALCIUM LEVEL 9.2 MG/DL (8.8-10.2); CARBON DIOXIDE LEVEL 28 MEQ/L (21-32); CHLORIDE LEVEL 111 MEQ/L (98-107); CHOLESTEROL LEVEL 149 MG/DL (<200); CHOLESTEROL RISK RATIO 2.403 (<5); CREATININE FOR GFR 0.92 MG/DL (0.70-1.30); FERRITIN 9 NG/ML (26-388); FREE T4 0.86 NG/DL (0.76-1.46); GLOMERULAR FILTRATION RATE > 60.0 (>42); GLUCOSE, FASTING 97 MG/DL (70-100); HDL CHOLESTEROL 62 MG/DL (>40); IRON (FE) 45 UG/DL (65-175); LDL CHOLESTEROL 72 MG/DL (<100); NON-HDL-C 87 MG/DL; PERCENT SATURATION 12.1 % (19.7-50.0); POTASSIUM SERUM 4.1 MEQ/L (3.5-5.1); SODIUM LEVEL 142 MEQ/L (136-145); TOTAL IRON BINDING CAPACITY 372 UG/DL (250-450); TOTAL PROTEIN 6.4 GM/DL (6.4-8.2); TRIGLYCERIDES LEVEL 76 MG/DL (<150)
[2022-02-10 12:41] LABS: HEMOGLOBIN A1c 5.4 %
== END ==
LOC: M PLALAB 08:32
PROVIDERS: ATTEND Family Medicine
DX: E61.1 Iron deficiency (principal); E07.9 Disorder of thyroid, unspecified; E78.00 Pure hypercholesterolemia, unspecified; Z12.5 Encounter for screening for malignant neoplasm of prostate
CPT/HCPCS: 36415; 80053; 80061; 82728; 83036; 83550; 84439; 84443; 85027; G0103

== ENCOUNTER → 2022-02-18 | Outpatient (REF) | payer MEDICARE ==
[2022-02-18 13:39] LABS: APPEARANCE, URINE MANUAL CLEAR (CLEAR); BILIRUBIN, URINE MANUAL NEGATIVE (NEGATIVE); COLOR, URINE MANUAL YELLOW (YELLOW); GLUCOSE, URINE (UA) MANUAL NEGATIVE (NEGATIVE); KETONE, URINE MANUAL NEGATIVE (NEGATIVE); NITRITE, URINE MANUAL NEGATIVE (NEGATIVE); PROTEIN, URINE MANUAL NEGATIVE (NEGATIVE); UROBILINOGEN, URINE MANUAL NORMAL (NORMAL)
[2022-02-18 13:40] LABS: BLOOD URINE MANUAL NEGATIVE (NEGATIVE); LEUKOCYTE ESTERASE, URINE MAN POSITIVE (NEGATIVE)
[2022-02-18 14:22] LABS: BACTERIA, URINE LARGE AMOUNT; MUCUS, URINE MOD AMOUNT (NEGATIVE); WBC, URINE 20-30 /hpf (0-3)
[2022-02-18 14:23] LABS: HYALINE CAST, URINE NONE SEEN /lpf (0-1); SQUAMOUS EPITHELIAL CELL URINE SMALL AMOUNT /hpf (SMALL AMT)
== END ==
LOC: M SFHCADAM 09:20
PROVIDERS: ATTEND Family Medicine
DX: R30.0 Dysuria (principal)

== ENCOUNTER → 2022-03-12 | Outpatient (REF) | payer MEDICARE ==
[2022-03-12 14:41] LABS: APPEARANCE, URINE MANUAL HAZY (CLEAR); COLOR, URINE MANUAL YELLOW (YELLOW)
[2022-03-12 14:43] LABS: BILIRUBIN, URINE MANUAL NEGATIVE (NEGATIVE); BLOOD URINE MANUAL NEGATIVE (NEGATIVE); GLUCOSE, URINE (UA) MANUAL NEGATIVE (NEGATIVE); KETONE, URINE MANUAL NEGATIVE (NEGATIVE); LEUKOCYTE ESTERASE, URINE MAN POSITIVE (NEGATIVE); NITRITE, URINE MANUAL NEGATIVE (NEGATIVE); PROTEIN, URINE MANUAL NEGATIVE (NEGATIVE); UROBILINOGEN, URINE MANUAL NORMAL (NORMAL)
[2022-03-12 14:53] LABS: WBC, URINE 40-50 /hpf (0-3)
[2022-03-12 14:54] LABS: BACTERIA, URINE SMALL AMOUNT; SQUAMOUS EPITHELIAL CELL URINE MOD AMOUNT /hpf (SMALL AMT)
[2022-03-12 14:55] LABS: AMORPHOUS SEDIMENT, URINE SMALL AMOUNT (NEGATIVE); HYALINE CAST, URINE NONE SEEN /lpf (0-1); MUCUS, URINE LARGE AMOUNT (NEGATIVE)
== END ==
LOC: M SFHCADAM 12:47
PROVIDERS: ATTEND Family Medicine
DX: N39.0 Urinary tract infection, site not specified (principal)

== ENCOUNTER → 2022-08-08 | Outpatient (CLI) | payer MEDICARE ==
[2022-08-08 13:59] LABS: BASO # 0.1 10^3/uL (0.0-0.2); BASO % 0.8 % (0.0-1.0); EOS # 0.3 10^3/uL (0.0-0.5); EOS % 4.5 % (0.0-3.0); HEMATOCRIT 50.3 % (42.0-52.0); HEMOGLOBIN 16.4 g/dl (13.5-17.5); LYMPH # 1.8 10^3/uL (1.5-5.0); LYMPH % 28.2 % (24.0-44.0); MEAN CORPUSCULAR HEMOGLOBIN 32.2 pg (27.0-33.0); MEAN CORPUSCULAR HGB CONC 32.6 g/dl (32.0-36.5); MEAN CORPUSCULAR VOLUME 98.6 fl (80.0-96.0); MONO # 0.7 10^3/uL (0.0-0.8); MONO % 11.8 % (2.0-8.0); NEUTROPHILS # 3.3 10^3/uL (1.5-8.5); NEUTROPHILS % 53.9 % (36.0-66.0); PLATELET COUNT, AUTOMATED 231 10^3/uL (150-450); WHITE BLOOD COUNT 6.2 10^3/uL (4.0-10.0)
[2022-08-08 14:01] LABS: ALBUMIN 3.6 G/DL (3.2-5.2); ALKALINE PHOSPHATASE 61 U/L (46-116); ALT/SGPT 23 U/L (7.0-40); AST/SGOT 19 U/L (<34); BLOOD UREA NITROGEN 21 MG/DL (9-23); CARBON DIOXIDE LEVEL 30 MMOL/L (20-31); CHLORIDE LEVEL 108 MMOL/L (98-107); CREATININE FOR GFR 0.91 MG/DL (0.70-1.30); GLOMERULAR FILTRATION RATE > 60.0 (>42); GLUCOSE, FASTING 92 MG/DL (74-106); IRON (FE) 174 UG/DL (65-175); PERCENT SATURATION 55.9 % (19.7-50.0); POTASSIUM SERUM 5.1 MMOL/L (3.5-5.1); SODIUM LEVEL 141 MMOL/L (136-145); TOTAL IRON BINDING CAPACITY 311 UG/DL (250-425); TOTAL PROTEIN 6.3 G/DL (5.7-8.2)
[2022-08-08 14:03] LABS: FERRITIN 50.6 NG/ML (10.5-307.3); FREE T4 0.98 NG/DL (0.89-1.76); THYROID STIMULATING HORMONE 3.029 uIU/ML (0.55-4.78)
== END ==
LOC: M PLALAB 09:31
PROVIDERS: ATTEND Family Medicine
DX: D50.9 Iron deficiency anemia, unspecified (principal); E07.9 Disorder of thyroid, unspecified

== ENCOUNTER → 2022-10-17 | Outpatient (CLI) | payer MEDICARE ==
[~2022-10-17] MED LIST changes: +BAYE81TA10 PO; +COQ1200C3 PO; +OMEP-173 PO; +VITA200031 PO
[2022-10-17 09:09] LABS: HEMATOCRIT 47.8 % (42.0-52.0); HEMOGLOBIN 15.8 g/dl (13.5-17.5); MEAN CORPUSCULAR HEMOGLOBIN 32.2 pg (27.0-33.0); MEAN CORPUSCULAR HGB CONC 33.1 g/dl (32.0-36.5); MEAN CORPUSCULAR VOLUME 97.4 fl (80.0-96.0); PLATELET COUNT, AUTOMATED 247 10^3/uL (150-450); RED BLOOD COUNT 4.91 10^6/uL (4.30-6.10); WHITE BLOOD COUNT 5.2 10^3/uL (4.0-10.0)
[2022-10-17 09:18] LABS: ERYTHROCYTE SEDIMENTATION RATE 23 mm/hr (0-20)
[2022-10-17 09:24] LABS: INR 0.94; PROTHROMBIN TIME 12.8 SECONDS (12.5-14.5)
[2022-10-17 09:34] LABS: ALBUMIN 3.6 G/DL (3.2-5.2); ALKALINE PHOSPHATASE 64 U/L (46-116); ALT/SGPT 20 U/L (7.0-40); AST/SGOT 19 U/L (<34); BILIRUBIN,TOTAL 0.8 MG/DL (0.3-1.2); BLOOD UREA NITROGEN 24 MG/DL (9-23); CALCIUM LEVEL 9.2 MG/DL (8.3-10.6); CARBON DIOXIDE LEVEL 28 MMOL/L (20-31); CHLORIDE LEVEL 108 MMOL/L (98-107); CREATININE FOR GFR 0.82 MG/DL (0.70-1.30); GLOMERULAR FILTRATION RATE > 60.0 (>42); GLUCOSE, FASTING 94 MG/DL (74-106); POTASSIUM SERUM 4.2 MMOL/L (3.5-5.1); SODIUM LEVEL 142 MMOL/L (136-145); TOTAL PROTEIN 6.4 G/DL (5.7-8.2)
== END ==
LOC: M RAD 08:05
PROVIDERS: ATTEND Orthopaedic Surgery
DX: Z01.818 Encounter for other preprocedural examination (principal); Z79.01 Long term (current) use of anticoagulants

== ENCOUNTER → 2022-10-21 | Outpatient (CLI) | payer MEDICARE | LOC: M ADAMS 11:16 | PROVIDERS: ATTEND Family Medicine | DX: R91.1 Solitary pulmonary nodule (principal) ==

== ENCOUNTER 2022-10-29 08:33 | Day surgery (SDC) | payer MEDICARE ==
[~2022-10-29] VITALS: Ht 180.3 cm; Wt 102.0 kg
[~2022-10-29 08:33] MED LIST changes: +NS 1,000 ML IV ONE
[2022-10-29] MEDS ORDERED: propofoL 200 MG/20 ML VIAL As Ordered ONE ×2 (08:59→09:47)
[2022-10-29] MEDS ORDERED: fentaNYL 100 MCG/2 ML INJECTION As Ordered ONE (09:00)
[2022-10-29 10:27] VITALS: BP 98/57
== END 2022-10-29 10:26 | disposition home or self-care (01) ==
LOC: M OPP 08:33
PROVIDERS: ATTEND Internal Medicine Gastroenterology
DX: Z86.010 Personal history of colon polyps (principal); D12.0 Benign neoplasm of cecum; K64.0 First degree hemorrhoids; K57.30 Diverticulosis of large intestine without perforation or abscess without bleeding; K31.7 Polyp of stomach and duodenum; K44.9 Diaphragmatic hernia without obstruction or gangrene; K22.70 Barrett's esophagus without dysplasia; Z79.02 Long term (current) use of antithrombotics/antiplatelets; Z79.82 Long term (current) use of aspirin; Z79.899 Other long term (current) drug therapy
CPT/HCPCS: 43239; 45385; 88305; J3010

== ENCOUNTER → 2022-11-21 | Outpatient (CLI) | payer MEDICARE ==
[~2022-11-21] MED LIST changes: +ISOVUE-370 76% 100ML VIAL As Ordered ONE; -NS 1,000 ML IV ONE
== END ==
LOC: M RAD 10:49
PROVIDERS: ATTEND Family Medicine
DX: R91.1 Solitary pulmonary nodule (principal)
CPT/HCPCS: 71260; Q9967

== ENCOUNTER → 2023-02-17 | Outpatient (CLI) | payer MEDICARE ==
[~2023-02-17] MED LIST changes: -ISOVUE-370 76% 100ML VIAL As Ordered ONE
[2023-02-17 11:07] LABS: BASO % 0.3 % (0.0-1.0); EOS # 0.2 10^3/uL (0.0-0.5); EOS % 3.7 % (0.0-3.0); HEMATOCRIT 45.5 % (42.0-52.0); LYMPH # 1.6 10^3/uL (1.5-5.0); LYMPH % 24.3 % (24.0-44.0); MEAN CORPUSCULAR HEMOGLOBIN 31.1 pg (27.0-33.0); MEAN CORPUSCULAR VOLUME 94.4 fl (80.0-96.0); MONO # 0.7 10^3/uL (0.0-0.8); MONO % 10.8 % (2.0-8.0); NEUTROPHILS # 3.9 10^3/uL (1.5-8.5); NEUTROPHILS % 60.4 % (36.0-66.0); PLATELET COUNT, AUTOMATED 264 10^3/uL (150-450); RED BLOOD COUNT 4.82 10^6/uL (4.30-6.10); WHITE BLOOD COUNT 6.5 10^3/uL (4.0-10.0)
[2023-02-17 11:19] LABS: HEMOGLOBIN A1c 4.5 % (4.0-6.0)
[2023-02-17 11:28] LABS: FREE T4 1.04 NG/DL (0.89-1.76); TOTAL IRON BINDING CAPACITY 290 UG/DL (250-425)
[2023-02-17 11:29] LABS: FERRITIN 46.4 NG/ML (10.5-307.3); THYROID STIMULATING HORMONE 4.572 uIU/ML (0.55-4.78)
[2023-02-17 11:31] LABS: ALBUMIN 3.7 G/DL (3.2-5.2); ALKALINE PHOSPHATASE 74 U/L (46-116); ALT/SGPT 15 U/L (7.0-40); AST/SGOT 15 U/L (<34); BLOOD UREA NITROGEN 19 MG/DL (9-23); CALCIUM LEVEL 9.1 MG/DL (8.3-10.6); CARBON DIOXIDE LEVEL 27 MMOL/L (20-31); CHLORIDE LEVEL 107 MMOL/L (98-107); CHOLESTEROL LEVEL 135 MG/DL (<200); CHOLESTEROL RISK RATIO 2.56 (<5); CREATININE FOR GFR 0.91 MG/DL (0.70-1.30); GLOMERULAR FILTRATION RATE > 60.0 (>42); GLUCOSE, FASTING 94 MG/DL (74-106); HDL CHOLESTEROL 52.6 MG/DL (>40); IRON (FE) 56 UG/DL (65-175); LDL CHOLESTEROL 64.2 MG/DL (<100); NON-HDL-C 82.4 MG/DL; PERCENT SATURATION 19.3 % (19.7-50.0); POTASSIUM SERUM 3.7 MMOL/L (3.5-5.1); SODIUM LEVEL 143 MMOL/L (136-145); TOTAL PROTEIN 6.4 G/DL (5.7-8.2); TRIGLYCERIDES LEVEL 91 MG/DL (<150)
== END ==
LOC: M PLALAB 08:14
PROVIDERS: ATTEND Family Medicine
DX: D50.9 Iron deficiency anemia, unspecified (principal); I10 Essential (primary) hypertension; Z12.5 Encounter for screening for malignant neoplasm of prostate
CPT/HCPCS: 36415; 80053; 80061; 82728; 83036; 83550; 84439; 84443; 85025; G0103

== ENCOUNTER 2023-10-22 18:12 | Emergency (ER) | payer MEDICARE ==
[~2023-10-22] VITALS: Ht 180.3 cm; Wt 107.1 kg
[2023-10-22] MEDS: LIDOCAINE 1% MDV 20ML VIAL SC ONE (23:05)
[2023-10-22] MEDS ORDERED: CEPH500T PO (23:58)
[2023-10-23 00:06] VITALS: BP 141/91; TEMP 97.6; O2SAT 97
[2023-10-23] MEDS: CEPHALEXIN 500 MG CAP PO ONE (00:11)
== END 2023-10-23 00:19 | disposition home or self-care (01) ==
LOC: M ED 18:12
DX: S61.214A Laceration without foreign body of right ring finger without damage to nail, initial encounter (principal); Y92.019 Unspecified place in single-family (private) house as the place of occurrence of the external cause; Y93.9 Activity, unspecified; Y99.9 Unspecified external cause status; I10 Essential (primary) hypertension; E78.5 Hyperlipidemia, unspecified; G47.33 Obstructive sleep apnea (adult) (pediatric); Z88.8 Allergy status to other drugs, medicaments and biological substances; Z79.2 Long term (current) use of antibiotics; Z79.810 Long term (current) use of selective estrogen receptor modulators (SERMs); Z79.899 Other long term (current) drug therapy

== ENCOUNTER → 2024-02-03 | Outpatient (CLI) | payer MEDICARE ==
[~2024-02-03] MED LIST changes: +CEPH500T PO
[2024-02-03 12:02] LABS: CHOLESTEROL RISK RATIO 3.14 (<5); HDL CHOLESTEROL 49.6 MG/DL (>40); LDL CHOLESTEROL 86.4 MG/DL (<100); NON-HDL-C 106.4 MG/DL
[2024-02-03 12:04] LABS: FREE T4 0.99 NG/DL (0.89-1.76); THYROID STIMULATING HORMONE 5.793 uIU/ML (0.55-4.78)
== END ==
LOC: M PLALAB 08:12
PROVIDERS: ATTEND Family Medicine
DX: E78.2 Mixed hyperlipidemia (principal); E03.8 Other specified hypothyroidism

== ENCOUNTER → 2024-03-30 | Outpatient (CLI) | payer MEDICARE ==
[2024-03-30 11:38] LABS: CHOLESTEROL RISK RATIO 3.02 (<5); HDL CHOLESTEROL 48.2 MG/DL (>40); LDL CHOLESTEROL 81.4 MG/DL (<100); NON-HDL-C 97.8 MG/DL
[2024-03-30 11:42] LABS: THYROID STIMULATING HORMONE 3.908 uIU/ML (0.55-4.78)
== END ==
LOC: M PLALAB 08:06
PROVIDERS: ATTEND Family Medicine
DX: E78.2 Mixed hyperlipidemia (principal)

== ENCOUNTER → 2024-08-11 | Outpatient (CLI) | payer MEDICARE ==
[2024-08-11 12:31] LABS: HEMATOCRIT 47.9 % (42.0-52.0); HEMOGLOBIN 15.7 g/dl (13.5-17.5); MEAN CORPUSCULAR HEMOGLOBIN 31.7 pg (27.0-33.0); MEAN CORPUSCULAR HGB CONC 32.8 g/dl (32.0-36.5); MEAN CORPUSCULAR VOLUME 96.8 fl (80.0-96.0); PLATELET COUNT, AUTOMATED 253 10^3/uL (150-450); RED BLOOD COUNT 4.95 10^6/uL (4.30-6.10); WHITE BLOOD COUNT 6.6 10^3/uL (4.0-10.0)
[2024-08-11 12:40] LABS: HEMOGLOBIN A1c 5.1 % (4.0-6.0)
[2024-08-11 13:04] LABS: IRON (FE) 101 UG/DL (65-175); PERCENT SATURATION 31.7 % (19.7-50.0); TOTAL IRON BINDING CAPACITY 319 UG/DL (250-425)
[2024-08-11 13:05] LABS: ALBUMIN 3.4 G/DL (3.2-5.2); ALKALINE PHOSPHATASE 65 U/L (40-129); ALT/SGPT 22 U/L (7.0-40); AST/SGOT 17 U/L (<34); BILIRUBIN,TOTAL 0.7 MG/DL (0.3-1.2); BLOOD UREA NITROGEN 20 MG/DL (9-23); CALCIUM LEVEL 8.8 MG/DL (8.3-10.6); CARBON DIOXIDE LEVEL 29 MMOL/L (20-31); CHLORIDE LEVEL 108 MMOL/L (98-107); CHOLESTEROL LEVEL 161 MG/DL (<200); CHOLESTEROL RISK RATIO 2.73 (<5); FREE T4 1.11 NG/DL (0.89-1.76); GLOMERULAR FILTRATION RATE > 60.0 (>42); GLUCOSE, FASTING 100 MG/DL (74-106); HDL CHOLESTEROL 58.9 MG/DL (>40); LDL CHOLESTEROL 84.7 MG/DL (<100); NON-HDL-C 102.1 MG/DL; POTASSIUM SERUM 4.2 MMOL/L (3.5-5.1); PSA SCREENING 2.73 NG/ML (< 4.00); SODIUM LEVEL 144 MMOL/L (136-145); THYROID STIMULATING HORMONE 3.693 uIU/ML (0.55-4.78); TOTAL PROTEIN 6.4 G/DL (5.7-8.2); TRIGLYCERIDES LEVEL 87 MG/DL (<150)
[2024-08-11 13:06] LABS: FERRITIN 32.9 NG/ML (10.5-307.3)
== END ==
LOC: M PLALAB 08:09
PROVIDERS: ATTEND Family Medicine
DX: E03.9 Hypothyroidism, unspecified (principal); D50.9 Iron deficiency anemia, unspecified; Z12.5 Encounter for screening for malignant neoplasm of prostate
CPT/HCPCS: 36415; 80053; 80061; 82728; 83036; 83550; 84439; 84443; 85027; G0103

== ENCOUNTER → 2024-12-16 | Outpatient (CLI) | payer MEDICARE ==
[~2024-12-16] MED LIST changes: -PRAV40TA2 PO; +PRAV40TA85 PO
== END ==
LOC: M RAD 10:22
PROVIDERS: ATTEND Physician Assistant
DX: R22.41 Localized swelling, mass and lump, right lower limb (principal); I83.891 Varicose veins of right lower extremity with other complications

== ENCOUNTER → 2025-01-26 | Outpatient (CLI) | payer MEDICARE | LOC: M PLAIMG 10:32 | PROVIDERS: ATTEND Physician Assistant | DX: I08.3 Combined rheumatic disorders of mitral, aortic and tricuspid valves (principal) ==

== ENCOUNTER → 2025-05-10 | Outpatient (CLI) | payer MEDICARE ==
[2025-05-10 10:58] LABS: PLATELET COUNT, AUTOMATED 272 10^3/uL (150-450)
[2025-05-10 11:35] LABS: ALT/SGPT 19.0 U/L (7.0-40); AST/SGOT 24.0 U/L (<34); CALCIUM LEVEL 9.0 MG/DL (8.3-10.6); CARBON DIOXIDE LEVEL 26.0 MMOL/L (20-31); CHLORIDE LEVEL 107.0 MMOL/L (98-107); CHOLESTEROL LEVEL 144.0 MG/DL (<200); CHOLESTEROL RISK RATIO 2.32 (<5); CREATININE FOR GFR 0.9 MG/DL (0.70-1.30); FREE T4 1.21 NG/DL (0.89-1.76); GLOMERULAR FILTRATION RATE 87.4 (>42); LDL CHOLESTEROL 68.7 MG/DL (<100); NON-HDL-C 82.1 MG/DL; POTASSIUM SERUM 4.4 MMOL/L (3.5-5.1); PSA SCREENING 2.7 NG/ML (< 4.00); SODIUM LEVEL 142.0 MMOL/L (136-145); TRIGLYCERIDES LEVEL 67.0 MG/DL (<150)
[2025-05-10 11:50] LABS: ESTIMATED AVERAGE GLUCOSE 103.0 MG/DL (60-110)
== END ==
LOC: M PLALAB 08:38
PROVIDERS: ATTEND Family Medicine
DX: I11.9 Hypertensive heart disease without heart failure (principal); K22.70 Barrett's esophagus without dysplasia; D50.9 Iron deficiency anemia, unspecified; E74.9 Disorder of carbohydrate metabolism, unspecified; E78.2 Mixed hyperlipidemia; Z12.5 Encounter for screening for malignant neoplasm of prostate; E03.8 Other specified hypothyroidism; Z79.899 Other long term (current) drug therapy
CPT/HCPCS: 36415; 80053; 80061; 82728; 83036; 84439; 84443; 85027; G0103

== ENCOUNTER → 2025-05-10 | Outpatient (CLI) | payer MEDICARE ==
[2025-05-10 11:42] LABS: CALCIUM LEVEL 8.8 MG/DL (8.3-10.6); CARBON DIOXIDE LEVEL 27.0 MMOL/L (20-31); CHLORIDE LEVEL 109.0 MMOL/L (98-107); CREATININE FOR GFR 0.88 MG/DL (0.70-1.30); GLOMERULAR FILTRATION RATE 88.0 (>42); POTASSIUM SERUM 4.4 MMOL/L (3.5-5.1); SODIUM LEVEL 143.0 MMOL/L (136-145)
== END ==
LOC: M PLALAB 08:41
PROVIDERS: ATTEND Physician Assistant
DX: K22.70 Barrett's esophagus without dysplasia (principal); D50.9 Iron deficiency anemia, unspecified; E74.9 Disorder of carbohydrate metabolism, unspecified; E78.2 Mixed hyperlipidemia; Z12.5 Encounter for screening for malignant neoplasm of prostate; E03.8 Other specified hypothyroidism